=== PATIENT | female | born 1995 | race Caucasian/White ===

== ENCOUNTER 2025-04-03 18:01 | Emergency (ER) | payer OTHER, SELFPAY ==
[2025-04-03 18:07] VITALS: BP 129/88
[2025-04-03 18:31] LABS: Hematocrit 41.6 % (37.0-47.0); Hemoglobin 14.4 g/dL (12.0-16.0); Mean Corp Hgb Conc. 34.6 g/dL (33.0-37.0); Mean Corpuscular Volume 86.1 fL (81.0-99.0); Nucleated Red Blood Cells % 0 %; Platelet Count 193 10^3/uL (130-400); Red Cell Dist. Width 11.7 % (11.5-14.5)
[2025-04-03 18:56] LABS: HCG, Serum Qualitative Screen Negative
[2025-04-03 18:59] LABS: ALT (SGPT) 16 U/L (0-35); AST (SGOT) 22 U/L (14-36); Albumin 4.9 g/dl (3.5-5.0); Alkaline Phosphatase 58 U/L (38-126); Blood Urea Nitrogen 16 mg/dl (7-17); Calcium 9.7 mg/dl (8.4-10.2); Carbon Dioxide 27 mmol/L (22-30); Chloride 104 mmol/L (98-107); Glucose 99 mg/dl (70-99); Potassium 4.7 mmol/L (3.5-5.1); Sodium 139 mmol/L (135-145); Total Protein 7.8 g/dl (6.3-8.2); eGFR > 60.00
[2025-04-03 19:00] LABS: Lipase 64 U/L (23-300)
[2025-04-03 21:09] VITALS: BP 105/75
[2025-04-03 21:11] VITALS: BMI 24.2
--- NOTE | 2025-04-03 21:14 | EDRN ---
Pt drinks a lot of electrolytes due to dehydration issues. 0130 pt woke with 'splitting headache and vomiting.' Pt with hx gallbladder problems and says she had an episode of pancreatitis. Pt has not been feeling well all week, hydrated and ate
low fat, no caffeine. Pt feels her abdomen is full, no pain. Nausea improved, says she has not eaten anything since last night. Pt has been sipping water all day. Pt vomited in the afternoon couple times. No diarrhea/constipation, fever/cough.
Pt has had chills. No ill contacts. Pt has little headache remaining, no photophobia.
[2025-04-03] MEDS: ZOFRAN 4 MG IV (21:49)
[2025-04-03] MEDS: NSS 1000 IV (21:49)
[2025-04-03] MEDS: TORADOL 15 MG IV (21:52)
[2025-04-03 22:00] VITALS: BP 109/81
--- NOTE | 2025-04-03 22:50 | ED.GENMED ---
History of Present Illness
General
Chief Complaint: Abdominal Symptoms
Time Seen by Provider: 04/03/25 21:15
Nursing documentation reviewed up to this point in time: agreed with
History of Present Illness
History of Present Illness:
30-year-old female presents to the ER for evaluation of upper abdominal bloating discomfort which has been present all week. Patient states that she experiences this every couple of months. She had seen her primary care physician in the past for
the similar symptoms and thought they were related to GERD. Patient restarted PPI this week (esomeprazole) but has had no significant improvement in her symptoms. She has tapered off her p.o. intake but has been trying to encourage fluids as she
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 Patient states that she was able to hydrate very well yesterday but unfortunately awakened this morning with a
headache. She states that it is not uncommon for her to have a headache which is also associated with nausea and vomiting. Patient had multiple episodes of emesis today and was unable to eat very much prompting visit to the ER for evaluation. She
reports feeling generally weak. No fevers. No change in bowel habits. She denies . She denies dysuria. She denies any alcohol use. She states that she had pancreatitis once in the past of unclear etiology.
Phy Exam
Physical Exam
Physical Exam:
Patient is awake, alert, appears no acute distress, mucous membranes moist, conjunctiva pink, sclera anicteric, heart regular rate and rhythm no murmurs or ectopy, lungs are clear to auscultation without wheezes rales or rhonchi, abdomen is soft and
nontender on palpation, no guarding or rebound, extremities without edema, GCS is 15, moving all extremities symmetrically without focal deficit, 2+ DP pulses present symmetric bilateral feet
Course
Orders/Labs/Results
Orders:
Orders
04/03/25 18:12
Test Result ONCE
04/03/25 18:17
CMP [Comprehensive Metabolic Panel] Urgent
Complete Blood Count/With Diff Urgent
HCG, Serum Qualitative Screen Urgent
Lipase Urgent
04/03/25 21:36
0.9% Sodium Chloride 1000 ml [Nss] 1,000 ml IV BOLUS
Ketorolac [Toradol] 15 mg IV NOW STA
Ondansetron Injectable [Zofran] 4 mg IV NOW STA
04/03/25 18:17
04/03/25 18:17
Labs are very reassuring with normal CBC, electrolytes, kidney function preserved, normal lipase
Vital Signs
Initial and Last Documented VS:
Initial Vital Signs
Temp Pulse Resp BP Pulse Ox
98.3 F 89 16 129/88 98
04/03/25 18:07 04/03/25 18:07 04/03/25 18:07 04/03/25 18:07 04/03/25 18:07
Last Documented Vital Signs
Temp Pulse Resp BP Pulse Ox
98.3 F 58 17 109/81 99
04/03/25 18:07 04/03/25 22:00 04/03/25 22:00 04/03/25 22:00 04/03/25 22:52
MDM/Problems Addressed
Differential Diagnosis Includes:
Differential diagnosis considered but not limited to migraine, dehydration, electrolyte dyscrasia, pancreatitis, biliary colic, GERD along with other etiologies considered
Chronic conditions affecting care:
GERD
*Pulse Oximetry
SaO2: 99
Oxygen Mode of Delivery: Room air
Patient hypoxic: no
*Critical Care Note
Total Time (30-74mins, 75-104mins- exclusive of procedures): Not Applicable
Update Note
Update Note:
Patient was given IV fluids, Pepcid and Toradol with some improvement in her symptoms. She was able to tolerate p.o. well here. I discussed with her very reassuring workup. Given absence of abdominal discomfort on palpation, radiology studies are
not indicated at the current time. I discussed with patient benefit of initiation of Pepcid in addition to her esomeprazole and benefit of follow-up with gastroenterology as she has not seen them in the past. She expressed understanding of
discharge instructions along with strict return precautions. She had no questions prior to leaving the department.
ED Attending Note
-
Portions of this chart may have been created with voice recognition software.� Occasional wrong word or��sound alike� substitutions may have occurred due to the inherent limitations of voice recognition software.
Discharge Plan
Departure
Patient Disposition: Home (Routine Discharge)
Date of Disposition: 04/03/25
Time of Disposition: 22:52
Patient with high blood pressure during this ER visit?: No
Discharge Problem:
Abdominal pain, Vomiting
Instructions: [place] Diet, Acid reflux and GERD in adults
Prescriptions:
New
ondansetron 4 mg tablet,disintegrating
4 mg PO TIDPRN PRN (Reason: nausea/vomiting) Qty: 14 0RF
No Action
norethindrone (contraceptive) 0.35 mg Tablet
0.35 mg PO DAILY
venlafaxine 75 mg Tablet Extended Release 24hr
75 mg PO DAILY
Orilissa 200 mg Tablet
200 mg PO BID
Referrals:
NONE,* [Family Provider, Internal Medicine]
Audra Redd MD [Active, Gastroenterology]
Activity Restrictions/Additional Instructions:
Encourage fluids. Please take Pepcid as available [id number] in addition to your current esomeprazole. Return to the ER for any concerns including but not limited to inability to eat or drink, fever, worsening pain. Please contact
gastroenterology office on Sunday to schedule appointment for reevaluation and further care
Interventions
Interventions:
*Risk Screen - Suicide Last Done: 04/03/25 18:07
*General Assessment Last Done: 04/03/25 21:11
*Neglect/Abuse Screening Last Done: 04/03/25 18:07
*ED- Fall Risk Assessment Last Done: 04/03/25 21:11
DX-[id number]-[id number] Assessment Last Done: 04/03/25 21:22
Discharge Date and Time
Print Language: MALAWIAN
[2025-04-03 23:00] VITALS: BP 113/76
== END 2025-04-03 23:14 | disposition home or self-care (01) ==
LOC: EMR 18:01
PROVIDERS: Emergency Medicine; EMERGENCY PHYSICIAN Emergency Medicine
DX: R10.10 Upper abdominal pain, unspecified (principal); R14.0 Abdominal distension (gaseous); R51.9 Headache, unspecified; R11.2 Nausea with vomiting, unspecified; K21.9 Gastro-esophageal reflux disease without esophagitis; F41.9 Anxiety disorder, unspecified; F32.A Depression, unspecified; Z87.19 Personal history of other diseases of the digestive system; Z88.8 Allergy status to other drugs, medicaments and biological substances
CPT/HCPCS: 99284; 96374; 96375; 96361; 80053; 83690; 84703; 85025